=== PATIENT | female | born 1940 | race Caucasian/White ===

== ENCOUNTER → 2017-05-14 | Outpatient (CLI) | payer MEDICARE ==
[~2017-05-14] MED LIST: LETR2.5T18 PO
--- NOTE | 2017-05-14 13:23 | RAD ---
DATE: 05/14/2017 EXAM: DIGITAL DIAGNOSTIC LT HISTORY: History of right breast malignancy 2012 with subsequent mastectomy COMPARISON: One year earlier This study was interpreted with the benefit of Computerized Aided Detection (CAD). FINDINGS: Breast Density: FATTY The Breast Parenchyma is primarily fatty replaced. Breast parenchyma level density A.. There has not been a significant change in the appearance of the breast compared to the previous exam IMPRESSION: Benign finding BI-RADS CATEGORY: 2 BENIGN FINDING(S) RECOMMENDED FOLLOW-UP: 12M 12 MONTH FOLLOW-UP PQRS compliance statement: Patient information was entered into a reminder system with a target due date 05/14/2018 for the next mammogram. Mammography is a sensitive method for finding small breast cancers, but it does not detect them all and is not a substitute for careful clinical examination. A negative mammogram does not negate a clinically suspicious finding and should not result in delay in biopsying a clinically suspicious abnormality. "Our facility is accredited by the [employer] Mammography Program."
== END | disposition home or self-care (01) ==
LOC: MAMMO 12:26
PROVIDERS: ATTEND Internal Medicine Hematology & Oncology
DX: R92.8 Other abnormal and inconclusive findings on diagnostic imaging of breast (principal); Z85.3 Personal history of malignant neoplasm of breast
CPT/HCPCS: G0206; 77065

== ENCOUNTER 2018-04-20 16:59 | Inpatient (IN) | payer MEDICARE ==
[2018-04-20 17:49] LABS: ADD MAN DIFF? NO
[2018-04-20 17:57] LABS: BASO % 1 % (0-3); EOS # 0.3 x10^3/uL (0.0-0.7); EOS % 3 % (0-3); HEMATOCRIT 46.6 % (36.0-47.0); HEMOGLOBIN 15.6 g/dL (12.0-15.5); LYMPH # 1.5 x10^3/uL (1.0-4.8); LYMPH % 15 % (24-48); MEAN CORPUSCULAR HEMOGLOBIN 29 pg (25-35); MEAN CORPUSCULAR HGB CONC 33 g/dL (31-37); MEAN CORPUSCULAR VOLUME 88 fL (79-100); MONO # 0.6 x10^3/uL (0.0-1.1); MONO % 6 % (0-9); NEUT # 7.2 x10^3uL (1.8-7.7); NEUT % 76 % (31-73); PLATELET COUNT 248 x10^3/uL (140-400); RED BLOOD COUNT 5.31 x10^6/uL (3.50-5.40); RED CELL DISTRIBUTION WIDTH 13.8 % (11.5-14.5); WHITE BLOOD COUNT 9.6 x10^3/uL (4.0-11.0)
[2018-04-20 18:00] LABS: PARTIAL THROMBOPLASTIN TIME 24 SEC (24-38); PROTHROMBIN TIME PATIENT 12.9 SEC (11.7-14.0)
[2018-04-20] MEDS ORDERED: ONDANSETRON PF 4 MG/2 ML VIAL. IV ×2 (18:00→19:15)
[2018-04-20 18:05] LABS: ANION GAP 14 (6-14); BLOOD UREA NITROGEN 21 mg/dL (7-20); CALCIUM 9.4 mg/dL (8.5-10.1); CARBON DIOXIDE 23 mmol/L (21-32); CHLORIDE 105 mmol/L (98-107); CREATININE 1.5 mg/dL (0.6-1.0); GFR 33.5; GLUCOSE 93 mg/dL (70-99); POTASSIUM 4.5 mmol/L (3.5-5.1); SODIUM 142 mmol/L (136-145)
[2018-04-20 18:06] LABS: MAGNESIUM 2.4 mg/dL (1.8-2.4)
[2018-04-20 18:15] LABS: TROPONINI < 0.017 ng/mL (0.000-0.055)
[2018-04-20 18:18] LABS: NT-PRO BNP 491 pg/mL (0-449); THYROID STIM HORMONE (TSH) 4.546 uIU/mL (0.358-3.74)
[2018-04-20] MEDS ORDERED: ACETAMINOPHEN 325 MG TABLET. PO (19:15)
[2018-04-20] MEDS ORDERED: DOCUSATE SODIUM 100 MG CAPSULE. PO (19:15)
[2018-04-20] MEDS ORDERED: hydrALAZINE 20 MG/ML VIAL. IVP (19:15)
[2018-04-20 19:48] LABS: FREE T4 0.83 ng/dL (0.76-1.46)
[2018-04-20] MEDS: HEPARIN PF for SUB-Q USE 5,000 UNIT/0.5 ML VIAL. SQ (22:00)
[2018-04-20 22:13] LABS: TROPONINI < 0.017 ng/mL (0.000-0.055)
[2018-04-21] MEDS: IV NORMAL SALINE 1000ML BAG 1,000 ML IV (00:08)
[2018-04-21 00:29] LABS: TROPONINI < 0.017 ng/mL (0.000-0.055)
[2018-04-21 04:49] LABS: ADD MAN DIFF? NO
[2018-04-21 04:53] LABS: BASO % 1 % (0-3); EOS # 0.3 x10^3/uL (0.0-0.7); EOS % 4 % (0-3); HEMOGLOBIN 13.7 g/dL (12.0-15.5); LYMPH # 1.6 x10^3/uL (1.0-4.8); LYMPH % 25 % (24-48); MEAN CORPUSCULAR HEMOGLOBIN 30 pg (25-35); MEAN CORPUSCULAR HGB CONC 33 g/dL (31-37); MEAN CORPUSCULAR VOLUME 88 fL (79-100); MONO # 0.5 x10^3/uL (0.0-1.1); MONO % 8 % (0-9); NEUT # 4.1 x10^3uL (1.8-7.7); NEUT % 63 % (31-73); PLATELET COUNT 232 x10^3/uL (140-400); RED BLOOD COUNT 4.64 x10^6/uL (3.50-5.40); RED CELL DISTRIBUTION WIDTH 13.7 % (11.5-14.5); WHITE BLOOD COUNT 6.5 x10^3/uL (4.0-11.0)
[2018-04-21 05:35] LABS: ANION GAP 9 (6-14); BLOOD UREA NITROGEN 18 mg/dL (7-20); CALCIUM 8.4 mg/dL (8.5-10.1); CARBON DIOXIDE 24 mmol/L (21-32); CHLORIDE 108 mmol/L (98-107); CREATININE 1.2 mg/dL (0.6-1.0); GFR 43.3; GLUCOSE 108 mg/dL (70-99); POTASSIUM 3.9 mmol/L (3.5-5.1); SODIUM 141 mmol/L (136-145)
[2018-04-21] MEDS: HEPARIN PF for SUB-Q USE 5,000 UNIT/0.5 ML VIAL. SQ (06:00)
[2018-04-21] MEDS: LETROZOLE 2.5 MG TABLET. PO (09:28)
[2018-04-21] MEDS ORDERED: LIDOCAINE 2%/EPI 1:100,000 20 ML VIAL. (09:56)
[2018-04-21] MEDS ORDERED: fentaNYL PF VIAL 100 MCG/2 ML VIAL (10:11)
[2018-04-21] MEDS ORDERED: MIDAZOLAM HCL/PF 2 MG/2 ML VIAL. (10:11)
[2018-04-21] MEDS: MIDAZOLAM HCL/PF 2 MG/2 ML VIAL. IV (10:15)
[2018-04-21] MEDS: fentaNYL PF VIAL 100 MCG/2 ML VIAL IV (10:15)
[2018-04-21] MEDS: BACITRACIN 50,000 UNIT in IV NORMAL SALINE 250ML 250 ML IRR (10:30)
[2018-04-21] MEDS: VANCOMYCIN 1GM IVPB FOR OMNI 250 ML IV (10:58)
[2018-04-21] MEDS: LIDOCAINE 2%/EPI 1:100,000 20 ML VIAL. IJ (11:00)
[2018-04-21] MEDS ORDERED: IODIXANOL 320 MG/ML 100 ML VIAL. (11:19)
[2018-04-21] MEDS: IODIXANOL 320 MG/ML 100 ML VIAL. IART (12:10)
[2018-04-21] MEDS: ACETAMINOPHEN 650 MG/20.3 ML SOLUTION. PEG ×3 (13:37→23:03)
[2018-04-21] MEDS ORDERED: NO ANTICOAGULANT THERAPY. MC (14:15)
[2018-04-21] MEDS: VANCOMYCIN 1 GM in IV NORMAL SALINE 250ML 250 ML IV (23:03)
[2018-04-22] MEDS: LETROZOLE 2.5 MG TABLET. PO (08:52)
[2018-04-22] MEDS: ACETAMINOPHEN 650 MG/20.3 ML SOLUTION. PEG (10:58)
[2018-04-24 13:51] LABS: MRSA BY PCR Negative (Negative)
== END 2018-04-22 13:35 | disposition home or self-care (01) | DRG 242 ==
LOC: ER 16:59 → 1 WEST ICU 18:04 → 2 SOUTH 04-21 19:11
PROC: 0JH606Z Insertion of Pacemaker, Dual Chamber into Chest Subcutaneous Tissue and Fascia, Open Approach (ICD-10-PCS; principal; 2018-04-21)
PROC: 02H63JZ Insertion of Pacemaker Lead into Right Atrium, Percutaneous Approach (ICD-10-PCS; 2018-04-21)
PROC: 02HK3JZ Insertion of Pacemaker Lead into Right Ventricle, Percutaneous Approach (ICD-10-PCS; 2018-04-21)
DX: I44.2 Atrioventricular block, complete (principal); N17.0 Acute kidney failure with tubular necrosis; I12.9 Hypertensive chronic kidney disease with stage 1 through stage 4 chronic kidney disease, or unspecified chronic kidney disease; N18.3 Chronic kidney disease, stage 3 (moderate); Z85.3 Personal history of malignant neoplasm of breast; Z90.11 Acquired absence of right breast and nipple; Z88.0 Allergy status to penicillin; Z88.5 Allergy status to narcotic agent; Z82.49 Family history of ischemic heart disease and other diseases of the circulatory system
CPT/HCPCS: 33208; 36415; 71045; 71046; 80048; 83735; 83880; 84439; 84443; 84481; 84484; 85025; 85610; 85730; 87641; 93005; 93306; 96374; 99152; 99153; 99285; 99285-25; C1785; C1898; J1265; J2250; J3010; J3370; J3490; J7030; J7050

== ENCOUNTER → 2018-07-29 | Outpatient (CLI) | payer MEDICARE ==
[2018-04-22 10:52] VITALS: BP 155/82
--- NOTE | 2018-07-29 13:58 | RAD ---
Right axillary ultrasound, 07/29/2018: History: Axillary swelling after trauma The area of clinical concern was carefully scanned. There is a 7 x 10 x 15 mm nodule with morphologic characteristics suggesting a lymph node. It is predominantly echogenic compatible with a prominent fatty hilum. Its visible margins are smooth. There is a tiny 2 x 3 x 3 mm hypoechoic nodule located more inferiorly in the right axilla. There is no significant posterior acoustic enhancement or shadowing. There are low level internal echoes. This is a nonspecific appearance and may be a complicated cyst or tiny hematoma. No other abnormality is detected. IMPRESSION: 1. Small benign-appearing axillary lymph node. 2. Additional tiny hypoechoic nodule as described above. Clinical surveillance and sonographic follow-up in 4-6 months is suggested to confirm that this is a benign process. BI-RADS 3-probably benign findings
== END | disposition home or self-care (01) ==
LOC: US 12:58
PROVIDERS: ATTEND Internal Medicine Hematology & Oncology
DX: C50.411 Malignant neoplasm of upper-outer quadrant of right female breast (principal); Z17.0 Estrogen receptor positive status [ER+]; Z88.0 Allergy status to penicillin
CPT/HCPCS: 76641

== ENCOUNTER 2018-10-13 11:35 | Emergency (ER) | payer MEDICARE ==
[~2018-10-13] VITALS: Ht 154.9 cm; Wt 59.0 kg
--- NOTE | 2018-10-13 12:53 | RAD ---
EXAM: Chest and left ribs, 3 views; left humerus, 2 views. HISTORY: Fall. Pain. COMPARISON: 04/22/2018 FINDINGS: Chest and left ribs: A frontal view of the chest and 2 views the left ribs are obtained. There is no infiltrate, pleural effusion or pneumothorax. There is biapical pleural scarring. There are few calcified granulomas. The heart is normal in size. There is a cardiac pacemaker with leads in expected position. No displaced rib fracture is seen. Left humerus: 2 views of the left humerus are obtained. There is a mildly displaced comminuted fracture involving the humeral head and neck. The glenohumeral and acromioclavicular joints are intact. IMPRESSION: 1. Mildly displaced comminuted left humeral head and neck fracture. 2. No acute pulmonary finding or evidence of acute rib trauma. Electronically signed by: Kelly Marquez MD (10/13/2018 12:48 PM) [id number]
[2018-10-13 13:30] VITALS: BP 160/83
--- NOTE | 2018-10-13 13:47 | PHYS DOC ---
Past Medical History Past Medical History: Cancer, Other Additional Past Medical Histor: BREAST CA, bradycardia Past Surgical History: Appendectomy, Other Additional Past Surgical Histo: R MASTECTOMY, pacemaker Alcohol Use: Occasionally Drug Use: None Adult General Chief Complaint Chief Complaint: SHOULDER INJURY HPI HPI 78 y/o female presents to ER via POV with her husbGunjan Hidalgo. She has c/o mechanical fall this morning which caused her to fall onto her lt side. She reports she went to her PCP office and was evaluated- she was given dose of IM Toradol and Phenergen for pain and placed in lt arm sling. Pt reports she also has lt side rib pain- denies SOA/CP or difficulty breathing. Pt reports she did hit her head but reports she barely grazed her head during fall and is denying head/neck/back pain or LOC. Pt's husb. denies pt with change in MS or confusion. Pt denies any sxs prior to fall. She currently denies dizziness/[place]. Review of Systems Review of Systems Constitutional: Denies fatigue/lethargy Eyes: Denies change in visual acuity, redness, or eye pain [] HENT: Denies head pain Respiratory: Denies cough or shortness of breath [] Cardiovascular: Denies CP GI: Denies abdominal pain, nausea, vomiting. Denies incontinence of bowel/ bladder : Denies dysuria or hematuria [] Musculoskeletal: Denies back/neck pain. Reports lt upper arm pain Integument: Denies abrasions/bruising/lacerations Neurologic: Denies headache, focal weakness or sensory changes. Denies dizziness All other systems were reviewed and found to be within normal limits, except as documented in this note. Allergies Allergies Allergies Coded Allergies Type Severity Reaction Last Updated Verified Penicillins Allergy Intermediate Unknown 07/25/14 Yes morphine Allergy Intermediate Unknown 07/25/14 Yes Physical Exam Physical Exam Constitutional: Well developed, well nourished, no acute distress, non-toxic appearance. Clear speech HENT: Normocephalic, atraumatic- nontender on palp., bilateral ears normal, oropharynx moist, no oral injury, nose normal. [] Eyes: 3mm PERRLA, EOMI- no nystagmus, conjunctiva normal, no discharge. [] Neck: Normal range of motion, no tenderness- no midline cervical tenderness/ palp. deformity, supple, no stridor. [] Cardiovascular: Heart rate regular rhythm, no murmur [] Lungs & Thorax: Bilateral breath sounds clear to auscultation- good air movement throughout all lung cho. Resp. equal/nonlabored. Tender to palp. lt mid lateral ribs- no obvious deformity/crepitus on palp. No visible injury at site Abdomen: Bowel sounds normal, soft, no tenderness Skin: Warm, dry, no ecchymosis/abrasions Back: No tenderness- no midline spinal tenderness or visible injury on exam, no CVA tenderness. [] Extremities: Pelvis stable/nontender. Bilat. LEs NL exam full ROM no injury. Rt upper extremity NL exam no injury. Lt shoulder nontender on palp. with no deformity- tender to palp. mid shaft lt upper arm anterior surface- no deformity /ecchymosis/swelling- lt elbow nontender- she has full ROM of lt elbow/wrist/ hand- is able to perform ROM of lt shoulder with reports of increased pain in mid lt upper arm with movements. 2+ bilat. radial. 2+ dorsalis pedis/posterior tibial. No cyanosis, no clubbing, ROM intact, no edema. [] Neurologic: Alert and oriented X 3, normal motor function, normal sensory function, no focal deficits noted. Steady unassisted gait Psychologic: Affect normal, judgement normal, at times during exam rude and not wanting to answer questions- she appears frustrated during exam and does report feeling upset with herself that she fell causing her to have to come to doctor/ ER. Pt's husb. reports this is NL behavior for pt- he denies pt with confusion/ change in MS prior to or following fall Current Patient Data Vital Signs Vital Signs Date Time Temp Pulse Resp B/P (MAP) Pulse Ox O2 Delivery O2 Flow Rate FiO2 10/13/18 13:30 101 19 160/83 (108) 95 Room Air 10/13/18 11:55 97.4 97.4 EKG EKG [] Radiology/Procedures Radiology/Procedures PROCEDURE: RIBS LEFT AND PA CHEST EXAM: Chest and left ribs, 3 views; left humerus, 2 views. HISTORY: Fall. Pain. COMPARISON: 04/22/2018 FINDINGS: Chest and left ribs: A frontal view of the chest and 2 views the left ribs are obtained. There is no infiltrate, pleural effusion or pneumothorax. There is biapical pleural scarring. There are few calcified granulomas. The heart is normal in size. There is a cardiac pacemaker with leads in expected position. No displaced rib fracture is seen. Left humerus: 2 views of the left humerus are obtained. There is a mildly displaced comminuted fracture involving the humeral head and neck. The glenohumeral and acromioclavicular joints are intact. IMPRESSION: 1. Mildly displaced comminuted left humeral head and neck fracture. 2. No acute pulmonary finding or evidence of acute rib trauma. Electronically signed by: Kelly Baker MD (10/13/2018 12:48 PM) [place] [id number] DICTATED and SIGNED BY: KELLY BAKER MD DATE: 10/13/18 1241 Course & Med Decision Making Course & Med Decision Making Pertinent Labs and Imaging studies reviewed. (See chart for details) During initial exam discussed head CT as pt reported she had "grazed' her head during fall- pt not wanting CT done. With pt having lt rib pain on palp. although denying SOA xray was recommended- at first she was not wanting xray of ribs- she was adament on an xray of lt arm and being discharged- following discussion pt was agreeable with xray of lt ribs along with lt arm xray. Pt was offered additional pain medication- she did not want additional medications. 1340: Discussed imaging results with patient and her family- with xray of lt arm report of " Mildly displaced comminuted left humeral head and neck fracture ". She had been provided with a sling at her primary care physician's office prior to the ER visit. Discussed sling application again and for her to wear the sling until follow-up with Dr. Soto, orthopedics who her PCP wants her to f/ u with. Patient remains neuro and vascular intact in left upper extremity. Patient denies any shortness of air or chest pain. Patient's chest Xray/rib imaging with no acute findings for fractures. Discussed sending patient with incentive spirometer with education on use of device. Patient appears frustrated during discussion she reports she is upset with herself for falling and having the injuries. Patient has good follow-up plan and was advised to call today for follow-up appointment with orthopedics. Offered prescription for [place] tablets however patient is not wanting prescription feels she will be able to tolerate pain with regular Tylenol. Education provided on signs and symptoms to return to ER for and monitoring neuro/vascular condition of left upper extremity. Discharge instructions were discussed. Patient had been provided with Toradol and Phenergan injection at primary care physician's office prior to ER visit and did not want any additional medications as it was offered. Dragon Disclaimer Dragon Disclaimer This electronic medical record was generated, in whole or in part, using a voice recognition dictation system. Departure Departure Impression: Primary Impression: Fracture of humerus, left, closed Additional Impressions: Contusion of rib on left side Fall Disposition: HOME, SELF-CARE Condition: STABLE Referrals: JACOB MONCADA (PCP) Patient Instructions: Arm Sling Use-Brief, Fall Prevention and Home Safety, Humerus Fracture, Treated with Immobilization, Incentive Spirometer, Rib Contusion Additional Instructions: Wear sling on left arm until follow-up with Dr. Soto, orthopedics for humerus fracture. call as soon as possible for follow-up appointment. Tylenol and/or ibuprofen as needed for pain as directed on container. You can apply ice pack to affected area every 3-4 hours for 20-30 minutes at a time avoid direct ice contact to skin. Use incentive spirometer several times daily to improve lung expansion and prevent pneumonia. Problem Qualifiers ARGENIS GOLDSTEIN APRN Oct 13, 2018 13:47
== END 2018-10-13 14:13 | disposition home or self-care (01) ==
LOC: ER 11:35
DX: S42.292A Other displaced fracture of upper end of left humerus, initial encounter for closed fracture (principal); S20.212A Contusion of left front wall of thorax, initial encounter; Z95.0 Presence of cardiac pacemaker; Z88.0 Allergy status to penicillin; Z88.5 Allergy status to narcotic agent; W18.39XA Other fall on same level, initial encounter; Y93.89 Activity, other specified; Y92.89 Other specified places as the place of occurrence of the external cause; Y99.8 Other external cause status
CPT/HCPCS: 71101; 73060; 99283

== ENCOUNTER 2020-11-03 07:03 | Observation (INO) | payer MEDICARE ==
[~2020-11-03] VITALS: Ht 154.9 cm; Wt 58.7 kg
[2020-11-03] VITALS (16 sets, daily range): BP systolic 103–144; BP diastolic 56–96
[~2020-11-03 07:03] MED LIST changes: +FEMARA2.5 MG PO; -LETR2.5T18 PO
[2020-11-03] MEDS ORDERED: BACITRACIN 50,000 UNIT in IV NORMAL SALINE 250ML 250 ML IRR ONE (07:15)
[2020-11-03] MEDS ORDERED: IODIXANOL 320 MG/ML 100 ML VIAL. ONE (07:42)
[2020-11-03] MEDS ORDERED: LIDOCAINE 2%/EPI 1:100,000 20 ML VIAL. ONE ×2 (07:42→09:05)
[2020-11-03 07:45] LABS: HEMATOCRIT 42.3 % (36.0-47.0); HEMOGLOBIN 14.3 g/dL (12.0-15.5); RED BLOOD COUNT 4.84 x10^6/uL (3.50-5.40); RED CELL DISTRIBUTION WIDTH 13.6 % (11.5-14.5); WHITE BLOOD COUNT 6.8 x10^3/uL (4.0-11.0)
[2020-11-03] MEDS ORDERED: MIDAZOLAM HCL/PF 2 MG/2 ML VIAL. ONE (07:58)
[2020-11-03] MEDS ORDERED: fentaNYL PF VIAL 100 MCG/2 ML VIAL ONE (07:58)
[2020-11-03] MEDS ORDERED: ceFAZolin SODIUM IV Push 1 GM VIAL. IVP ONE (08:05)
[2020-11-03] MEDS: IODIXANOL 320 MG/ML 100 ML VIAL. IART ONE (09:30)
[2020-11-03] MEDS ORDERED: fentaNYL PF VIAL 100 MCG/2 ML VIAL IV ONE (09:30)
[2020-11-03] MEDS ORDERED: LIDOCAINE 1%/EPI 1:100,000 20 ML VIAL. INJ ONE (09:30)
[2020-11-03] MEDS ORDERED: MIDAZOLAM HCL/PF 2 MG/2 ML VIAL. IV ONE (09:30)
[2020-11-03 09:49] LABS: CALCIUM 8.2 mg/dL (8.5-10.1); GFR 53.1; POTASSIUM 4.1 mmol/L (3.5-5.1)
--- NOTE | 2020-11-03 10:26 | PDOC ---
MODERATE SEDATION ASSESSMENT RISKS/ALTERNATIVES Risks/Alternatives Risks and alternatives of this type of sedation and procedure discussed with: RISK/ALTERNATIVES: Patient H & P ON CHART H & P H & P on chart and reviewed for co-morbid conditions and appropriate labs. H&P ON CHART: Yes STATUS PREG STATUS ASSESSED: N/A MEDS/ALLERGIES REVIEWED Meds/Allergies Reviewed Medications and Allergies including time and route of recently administered narcotics and sedatives. MEDS/ALLERGIES REVIEWED: Yes ASA RATING ASA RATING: III AIRWAY ASSESSMENT Airway Assessment Airway patency, oral function limitations, presence of caps, crowns, dentures, partials, and ability to extend neck assessed. AIRWAY ASSESSMENT: Yes MALLAMPATI SCORE MALLAMPATI SCORE: II PRE-SEDATION ASSESSMENT PRE-SEDATION ASSESSMENT: Yes AR ROJAS MD Nov 03, 2020 10:26
[2020-11-03] MEDS ORDERED: oxyCODONE/APAP 5/325 1 TAB TABLET PO PRN (10:30)
--- NOTE | 2020-11-03 10:44 | CARD ---
MR#: [id number] Date of Study: 11/03/2020 Ordering Physician: AR MERCEDES, Referring Physician: AR MERCEDES, Tech: APPROVED REPORT INDICATIONS Successful upgrade of Biotronik dual-chamber permanent pacemaker to biventricular pacemaker/cardiac r esynchronization therapy-pacing (TECHNICAL ASSOCIATE-P) Sedation Time: 84 Minutes Dose: 14.12 Gycm2 Fluoro Time: 6.9 Contrast: 15 mL Visipaque IMPLANTED DEVICES After explaining the risk, benefits and alternative options, informed consent was obtained for leo t. Patient was brought to the cardiac Metrology Technician and her left chest and shoulder were prepped and drap ed in the usual fashion. Left subclavian venography was performed to confirm patency due to prior pa cemaker implantation. 30 cc of 2% lidocaine was infiltrated into the skin and subcutaneous tissues f or local anesthesia. An incision was made over previous scar in the left infraclavicular fossa and u sing blunt dissection and cautery, the pacemaker pocket was opened, the capsule exposed and opened an d the previously placed generator removed from the pocket. Venous access was obtained in the left subclavian vein and a 9 Dutch coronary sinus sheath was inser amadeo. Contrast injections were performed in the right atrium using a SHRUTHI-2 catheter and coronary sin us ostium was engaged. The sheath was advanced into the coronary sinus over a Glidewire. Coronary s inus venogram was performed to identify the appropriate vein for placement of left ventricular lead. Using a 4 Dutch angled glide catheter, the posterior cardiac vein was selectively engaged and the s marilou was advanced. A Biotronik quadripolar left ventricular lead model Sentus ProMRI OTW QP-L serial #[id number] was advan kasia over a 0.014 inch grand slam guidewire into the posterior cardiac vein. The lead was secured int o place and along with the previously placed right atrial and right ventricular lead, were attached t o a Biotronik biventricular pacemaker/TECHNICAL ASSOCIATE-P generator model Edora 8HF-T QP and serial number [id number] . This was placed in the pocket that was subsequently closed in 3 layers. Hemostasis was secured usi ng D-Stat. The left ventricular lead showed threshold of 0.7 V and impedance of 800 ohms. The right ventricular lead showed a threshold of 0.6 V and the right atrial lead showed a threshold of 0.8 V. Patient temo erated the procedure well. There were no immediate complications. PROCEDURE After explaining the risks, benefits, and alternative options, informed consent was obtained from the patient. IV conscious sedation was used throughout procedure with appropriate monitoring and was performed in the presence of a registered nurse who was an independent trained observer other than the physician p erforming the procedure. During this case, Fluoroscopy were used for imaging. Specimen(s) Removed: No Estimated Blood loss: 40 cc's. Signed by : Ar Mercedes, Electronically Approved : 11/03/2020 10:43:39
--- NOTE | 2020-11-03 11:31 | RAD ---
XR CHEST 1V History: Reason: post pacemaker / Spl. Instructions: / History: Comparison: October 13, 2018 Findings: Left-sided pacemaker with RV and RA leads as well as epicardial lead. No pneumothorax. Hyperinflation . Reticular basilar opacities, unchanged. No new consolidation. No pleural effusion. Unchanged heart size. Chronic left proximal humerus fracture. Impression: 1. Left-sided pacemaker. No pneumothorax. Electronically signed by: Jovan Bojorquez DO (11/03/2020 11:28 AM) [id number]
[2020-11-03] MEDS ORDERED: VANCOMYCIN 1 GM in IV DEXTROSE 5% 250 ML IV ONE (20:00)
[2020-11-03] MEDS ORDERED: ACETAMINOPHEN 650 MG/20.3 ML SOLUTION. PEG PRN (20:30)
[2020-11-04 03:39] VITALS: BP 131/76
[2020-11-04] MEDS ORDERED: ceFAZolin SODIUM IV Push 1 GM VIAL. IVP ONE (06:00)
--- NOTE | 2020-11-04 07:59 | RAD ---
Chest PA and lateral: Reason for examination: Post pacemaker placement. Comparison is made to previous study dated 11/03/2020. Pacemaker remains present over the left hemithorax. Heart and mediastinum are unchanged. Lung cho continue show small oval nodular density in the mid right lung field which is unchanged. No new conge stion, infiltrates or pleural effusions are seen. No pneumothorax is evident. No acute bony abnormali ties are seen. IMPRESSION: Continued presence of a nodule in the right mid lung field which is stable. No acute cardiopulmonary disease. Electronically signed by: Sandy Guevara MD (11/04/2020 7:55 AM) [facility]
[2020-11-04 11:00] VITALS: BP 126/80
--- NOTE | 2020-11-04 11:16 | PDOC3 ---
Discharge Summary Visit Information Date of Admission: Nov 03, 2020 Date of Discharge: Nov 04, 2020 Admitting Diagnosis: Pacemaker mediated cardiomyopathy Final Diagnosis Complete heart block s/p permanent pacemaker implantation Chronic systolic heart failure Pacemaker mediated cardiomyopathy Brief Hospital Course Allergies Allergies Coded Allergies Type Severity Reaction Last Updated Verified Penicillins Adverse Reaction Mild makes her feel anxious 11/03/20 Yes diphenhydramine Adverse Reaction Mild makes her feel anxious 11/03/20 Yes morphine Adverse Reaction Mild makes her feel anxious 11/03/20 Yes Vital Signs Vital Signs Date Time Temp Pulse Resp B/P (MAP) Pulse Ox O2 Delivery O2 Flow Rate FiO2 11/04/20 08:00 Room Air 11/04/20 03:39 97.9 83 16 131/76 (94) 95 97.9 11/03/20 10:11 2.0 Lab Results Laboratory Tests Test 11/03/20 07:35 11/03/20 09:30 White Blood Count 6.8 x10^3/uL (4.0-11.0) Red Blood Count 4.84 x10^6/uL (3.50-5.40) Hemoglobin 14.3 g/dL (12.0-15.5) Hematocrit 42.3 % (36.0-47.0) Mean Corpuscular Volume 87 fL (79-100) Mean Corpuscular Hemoglobin 30 pg (25-35) Mean Corpuscular Hemoglobin Concent 34 g/dL (31-37) Red Cell Distribution Width 13.6 % (11.5-14.5) Platelet Count 244 x10^3/uL (140-400) Prothrombin Time 12.0 SEC (11.7-14.0) Prothromb Time International Ratio 0.9 (0.8-1.1) Sodium Level 141 mmol/L (136-145) Potassium Level 4.1 mmol/L (3.5-5.1) Chloride Level 107 mmol/L (98-107) Carbon Dioxide Level 26 mmol/L (21-32) Anion Gap 8 (6-14) Blood Urea Nitrogen 19 mg/dL (7-20) Creatinine 1.0 mg/dL (0.6-1.0) Estimated GFR (Cockcroft-Gault) 53.1 Glucose Level 206 mg/dL (70-99) Calcium Level 8.2 mg/dL (8.5-10.1) Brief Hospital Course Ms. John is a 80 old female with complete heart block s/p permanent pacemaker implantation had deterioration of her left ventricular systolic function from normal LVEF to an EF of 35% that did not improve over time. This was thought to be secondary to pacemaker mediated dyssynchrony/cardiomyopathy since patient was 100% right ventricular paced. She underwent successful Biotronik pacemaker upgrade to biventricular pacemaker/CUFF SLITTER-P. Her incision look good, her chest x-ray did not show any pneumothorax and she was hemodynamically stable at the time of discharge. She will follow-up with our office in 1 month. Discharge Information Condition at Discharge: Stable Follow Up: Months (one) Disposition/Orders: D/C to Home Scheduled Info (No Known Medications Prior To Admisstion) Each, 1 EACH 1X for , (Reported) Entered as Reported by: MIRANDA MEDEROS on 11/03/20799 Last Action: New Order on 11/03/20799 by MIRANDA MEDEROS Justicifation of Admission Dx: Justifications for Admission: Justification of Admission Dx: Yes AR ROJAS MD Nov 04, 2020 11:16
--- NOTE | 2020-11-04 13:20 | NUR ---
Discharge Note: JIMENEZ AVILA Discharge instructions and discharge home medications reviewed with Patient and a copy given. All questions have been answered and understanding verbalized. Pacemaker dressing removed before discharge. Steri-strips intact. No swelling or drainage noted. Immobilizer in place upon discharge. The following instructions and handouts were given: Post Pacemaker Instructions Discontinued lines and drains: Peripheral IV intact. Patient discharged to Home or Self Care with Family Member via Wheelchair
== END 2020-11-04 13:20 | disposition home or self-care (01) ==
LOC: CCL 07:03 → 2 NORTH 08:15
PROVIDERS: ADMIT Internal Medicine Cardiovascular Disease; ATTEND Internal Medicine Cardiovascular Disease
DX: I42.8 Other cardiomyopathies (principal); I44.2 Atrioventricular block, complete; I11.0 Hypertensive heart disease with heart failure; I50.22 Chronic systolic (congestive) heart failure; I73.89 Other specified peripheral vascular diseases; Z95.0 Presence of cardiac pacemaker
CPT/HCPCS: 33224; 36415; 71045; 71046; 80048; 85027; 85610; 96365; 96375; 99152; 99153; C1882; G0378; G0379; J0690; J2250; J3010; J3370; J3490; J7050; J7060; Q9967; J7030